=== PATIENT | female | born 1990 | race Caucasian/White ===

== ENCOUNTER 2023-12-31 19:03 | Inpatient (IN) ==
[2023-12-31 20:54] LABS: Urine Benzodiazepine Screen None Detected (None Detect); Urine Cannabinoids Screen None Detected (None Detect); Urine Opiates Screen None Detected (None Detect)
[2023-12-31] MEDS ORDERED: Lidocaine 1% VIAL 10 MG/ML 30 ML VIAL INJ PRN (20:56)
[2023-12-31] MEDS ORDERED: Buffered Lidocaine 1% SYRIN 1 ml INTRADERM ONE (20:56)
[2023-12-31] MEDS ORDERED: Lactated Ringers 1000 ml BAG 1,000 ML IV ONE (20:56)
[2023-12-31 22:52] LABS: ABS Eosinophils 0.2 10^3/uL (0.0-0.5); ABS Lymphocytes 2.2 10^3/uL (1.0-4.8); ABS Monocytes 0.7 10^3/uL (0.0-0.9); Eosinophil % 1.9 %; Hematocrit 34.2 % (35-45); Hemoglobin 11.2 g/dL (11.5-14.3); Lymphocyte % 19.6 %; Mean Corpuscular Hemoglobin 28.7 pg (27-33); Mean Corpuscular Hgb Conc 32.7 g/dL (31-36); Mean Corpuscular Volume 87.7 fL (80-97); Mean Platelet Volume 8.9 fL (7.5-11.2); Platelet Count 268 10^3/uL (150-450); Red Cell Distribution Width 14.9 % (12-17)
[2024-01-01] MEDS: Lactated Ringers 1000 ml BAG 1,000 ML IV SCH (06:19)
[2024-01-01] MEDS: Oxytocin in LR 20,000 MILLI.UNIT/1,000 ML BAG IV SCH ×2 (06:19→21:03)
[2024-01-01] MEDS ORDERED: Lidocaine 1.5% EPI 1:200,000 30 ML SDV ONE (10:48)
[2024-01-01] MEDS: OBEPIDURAL (200 ML) 200 ML EPIDURAL ONE (11:12)
[2024-01-01] MEDS ORDERED: Phenylephrine 40 mcg/mL 10mL (400mcg) SYRINGE IV PUSH PRN ×2 (11:27)
[2024-01-01] MEDS ORDERED: Lactated Ringers 1000 ml BAG 1,000 ML IV ONE ×2 (11:27→14:00)
[2024-01-01] MEDS ORDERED: OBEPIDURAL (200 ML) 200 ML EPIDURAL SCH (12:00)
[2024-01-01] MEDS ORDERED: Lactated Ringers 1000 ml BAG 1,000 ML IV SCH ×3 (12:00→18:00)
[2024-01-01 13:23] LABS: Urine Appearance Clear; Urine Bilirubin Negative (Negative); Urine Blood Negative (Negative); Urine Color Light-Yellow; Urine Glucose Negative (Negative); Urine Ketones Negative (Negative); Urine Nitrite Negative (Negative); Urine Protein Negative (Negative); Urine Specific Gravity 1.019 (1.002-1.030); Urine Urobilinogen Negative (Negative); Urine pH 7.5 (5.0-8.0)
[2024-01-01] MEDS ORDERED: Buffered Lidocaine 1% SYRIN 1 ml INTRADERM ONE (14:00)
[2024-01-01] MEDS: Sodium Citrate/Citric Acid LIQ 15 ML UDC PO PRN (15:12)
[2024-01-01] MEDS: ceFOXitin 3 GM in NS 0.9% 100 ml BAG 100 ML IVPB ONE (15:48)
[2024-01-01] MEDS: Methylergonovine 0.2 mg AMPULE 1 ml AMP ONE (16:29)
[2024-01-01] MEDS ORDERED: Dibucaine 1% OINT 28.35 GM TUBE PR PRN (17:42)
[2024-01-01] MEDS ORDERED: Witch Hazel PAD JAR TOPICAL PRN (17:42)
[2024-01-01] MEDS ORDERED: Glycerin ADULT 2.4 gm SUPP PR PRN (17:42)
[2024-01-02] MEDS ORDERED: Metoclopramide 5 MG/ML VIAL (10 mg) IV PRN (01:35)
[2024-01-02] MEDS ORDERED: Ondansetron 4 mg VIAL 2 MG/ML 2 ml VIAL IV PRN (01:35)
[2024-01-02] MEDS ORDERED: Acetaminophen IV 1 GM/100ML 1,000 MG/100 ML BAG IV PRN (01:35)
[2024-01-02] MEDS ORDERED: Naloxone 0.4 mg VIAL 0.4 mg/ml 1 ml VIAL IV PUSH PRN (01:35)
[2024-01-02 07:29] LABS: ABS Eosinophils 0.1 10^3/uL (0.0-0.5); ABS Lymphocytes 1.1 10^3/uL (1.0-4.8); ABS Monocytes 0.6 10^3/uL (0.0-0.9); ABS Neutrophils 7.1 10^3/uL (1.5-7.6); Eosinophil % 1.3 %; Hematocrit 29.1 % (35-45); Hemoglobin 9.8 g/dL (11.5-14.3); Lymphocyte % 12.6 %; Mean Corpuscular Hemoglobin 29.5 pg (27-33); Mean Corpuscular Hgb Conc 33.8 g/dL (31-36); Mean Corpuscular Volume 87.1 fL (80-97); Mean Platelet Volume 8.9 fL (7.5-11.2); Platelet Count 195 10^3/uL (150-450); Red Blood Count 3.34 10^6/uL (3.63-4.92); Red Cell Distribution Width 14.8 % (12-17)
[2024-01-03 12:01] VITALS: BP 133/76
[2024-01-03] MEDS: Measles, Mumps,Rubella VACC 0.5 ML/VIAL SUBCUT ONE (14:41)
== END 2024-01-03 15:06 | disposition home or self-care (01) | DRG 540 ==
LOC: MCHOBOUT 19:03 → MCHOB 20:29
PROVIDERS: ADMIT Obstetrics & Gynecology; ATTEND Obstetrics & Gynecology